=== PATIENT | female | born 1965 | race Caucasian/White ===

== ENCOUNTER 2017-04-02 05:40 | Inpatient (IN) | payer SELFPAY ==
[2017-04-02] VITALS (25 sets, daily range): BP systolic 92–134; BP diastolic 46–71; PULSE 66–92; RESP 10–20; TEMP 98.3; Ht 152.4 cm; Wt 57.0 kg
[~2017-04-02] VITALS: Ht 152.4 cm; Wt 57.0 kg
[2017-04-02 06:15] LABS: ADD SCAN DIFF NO
[2017-04-02 06:17] LABS: BASOPHILS % 0.3 % (0.0-2.0); HEMATOCRIT 39.3 % (37.0-47.0); HEMOGLOBIN 13.4 g/dl (12.0-16.0); LYMPHOCYTES # 1.1 10^3/ul (0.8-2.9); LYMPHOCYTES % 9.5 % (15.0-51.0); MEAN CORPUSCULAR HEMOGLOBIN 30.5 pg (29.0-33.0); MEAN CORPUSCULAR HGB CONC 34.1 g/dl (32.0-37.0); MEAN CORPUSCULAR VOLUME 89.3 fl (82.0-101.0); MEAN PLATELET VOLUME 10.9 fl (7.4-10.4); MONOCYTE # 0.5 10^3/ul (0.3-0.9); MONOCYTES % 4.1 % (0.0-11.0); NEUTROPHIL # 9.9 10^3/ul (1.6-7.5); NEUTROPHILS % 85.8 % (39.0-77.0); PLATELET COUNT 278 10^3/UL (140-415); RED CELL DISTRIBUTION WIDTH 13.9 % (11.5-14.5); WHITE BLOOD COUNT 11.5 10^3/ul (4.8-10.8)
[2017-04-02] MEDS ORDERED: ONDANSETRON 4 MG INJ IV STA (06:19)
[2017-04-02] MEDS ORDERED: FAMOTIDINE 20 MG INJ IV STA (06:19)
[2017-04-02] MEDS ORDERED: SOD CHLORIDE 0.9% 1,000 ML IV STA ×2 (06:19→09:07)
[2017-04-02] MEDS ORDERED: morphine 4 MG/ML VIAL IV STA ×2 (06:19→08:02)
[2017-04-02 06:38] LABS: ADD UMIC YES; UR ASCORBIC ACID NEGATIVE (NEGATIVE); UR BILIRUBIN (Dip) NEGATIVE (NEGATIVE); UR BLOOD (Dip) NEGATIVE (NEGATIVE); UR CLARITY SLIGHTLY CLOUDY (CLEAR); UR COLOR YELLOW (YELLOW); UR GLUCOSE (Dip) 1+ mg/dL (NEGATIVE); UR KETONES (Dip) TRACE mg/dL (NEGATIVE); UR LEUKOCYTE ESTERASE (Dip) NEGATIVE Leu/ul (NEGATIVE); UR NITRITE (Dip) NEGATIVE (NEGATIVE); UR RBC 1 /HPF (0-5); UR SPECIFIC GRAVITY (Dip) 1.015 (1.003-1.030); UR SQUAMOUS EPITHELIAL CELL FEW /HPF (FEW); UR TOTAL PROTEIN (Dip) 1+ mg/dl (NEGATIVE); UR UROBILINOGEN (Dip) NEGATIVE (NEGATIVE)
[2017-04-02 06:47] LABS: ALANINE AMINOTRANSFERASE 29 IU/L (13-69); ALBUMIN/GLOBULIN RATIO 1.66; ALKALINE PHOSPHATASE 62 IU/L (42-121); ANION GAP 22 (8-16); ASPARTATE AMINO TRANSFERASE 26 IU/L (15-46); BILIRUBIN,INDIRECT 0.2 mg/dl (0-1.1); BILIRUBIN,TOTAL 0.2 mg/dl (0.2-1.3); BLOOD UREA NITROGEN 15 mg/dl (7-20); CALCIUM 9.7 mg/dl (8.4-10.2); CARBON DIOXIDE 26 mmol/L (21-31); CHLORIDE 104 mmol/L (97-110); GLUCOSE 167 mg/dl (70-220); POTASSIUM 3.5 mmol/L (3.5-5.1); SODIUM 148 mmol/L (135-144)
[2017-04-02 07:05] LABS: TROPONIN-I < 0.012 ng/ml (0.00-0.12)
--- NOTE | 2017-04-02 08:04 | RADRPT ---
PROCEDURE: CT Abdomen and Pelvis without contrast. CLINICAL INDICATION: Right lower quadrant pain TECHNIQUE: CT scan of the abdomen and pelvis without contrast was performed without intravenous co ntrast. Coronal and sagittal reformatted images were obtained from the axial source images. Images were reviewed on a high-resolution PACS workstation. The total exam DLP equals 260 mGy-cm. One or more of the following dose reduction techniques were used: Automated exposure control Adjustment of the mA and/or kV according to patient size. Use of iterative reconstruction technique. COMPARISON: None. FINDINGS: The lung bases are clear. The visualized heart size is normal. The aorta and its branches are norm al in size and caliber. The kidneys are symmetric in size and density. There is no perinephric fat stranding. A few small ca lculi are visualized within the superior and inferior poles of both kidneys measuring up to 2-4 mm w ithout hydronephrosis. The ureters are difficult to visualize due to paucity of intra-abdominal fat although no large calculi are visualized within the expected course of the ureters. Evaluation of solid organs is limited due to the lack of intravenous contrast. However, the liver, g allbladder, spleen, pancreas, and adrenal glands are unremarkable. A small hiatal hernia is present. The stomach is decompressed. There is a right inguinal hernia in which there are loops of small bowel within the hernia. There is also fecalization of the small sean wel loops within the hernia without significant dilatation of the small bowel. There is a small geri unt of fat stranding and fluid adjacent to the bowel loops within the hernia sac in which some infla mmation may be present. There is some degree of swirling of the small bowel loops coronal images 21 - 23. The neck of the hernia measures about 4.0 cm wide although the hernia sac is larger than the neck of the hernia. Multiple diverticula are visualized more prominent within the lower descending and sigmoid colon without evidence for diverticulitis. The appendix is visualized, and is unremark able in appearance. There is no free intraperitoneal fluid or pneumoperitoneum. There is no mesenteric, retroperitoneal, or pelvic lymphadenopathy. The bladder is mildly distended, but grossly unremarkable. The uterus is enlarged and lobulated in a ppearance with fibroids, some of which contain calcifications. The adnexa are unremarkable. There is no pelvic free fluid. There is mild left convex curvature of the lumbar spine with mild degenerative disk disease. No acu te fractures are visualized. RPTAT: EE IMPRESSION: 1. Right inguinal hernia with small bowel loops within the hernia sac with a small amount of surrou nding inflammation - fat stranding and fluid which can be seen with an incarcerated and strangulated inguinal hernia. Fecalization of the small bowel loops within the hernia sac which can be seen wit h partial obstruction although the small bowel loops are normal in caliber without a high-grade obst ruction. 2. Nonobstructive bilateral renal calculi. 3. Diverticulosis. 4. Fibroid uterus. Results were discussed with Dr. HERNANDEZ at 04/02/2017 7:59:44 AM. .Pat Cason MD, MD Date Time Electronically viewed and signed by .Pat Cason MD, on 04/02/2017 08:08 .T/
[2017-04-02] MEDS ORDERED: SOD CHLORIDE 0.9% 1,000 ML IV SCH (08:59)
[2017-04-02] MEDS ORDERED: ONDANSETRON 4 MG INJ IV PRN ×3 (09:00→13:30)
[2017-04-02] MEDS ORDERED: ACETAMINOPHEN 325 MG TAB PO PRN (09:00)
[2017-04-02] MEDS ORDERED: HYDROmorphONE 1 MG/ML SYG IV STA (09:07)
--- NOTE | 2017-04-02 09:07 | ERA ---
ER Documentation Chief Complaint Date/Time DATE: 04/02/17 TIME: 09:02 Chief Complaint N/V and AP since 2300 04/01/17 HPI This is a 51-year-old female who presents to the emergency room for evaluation of abdominal pain. The patient states that she has had abdominal pain since 11 PM last night and she localizes it to the right abdomen. The patient does state that her pain is sharp pain worse with movement. She came to the emergency room today for evaluation of this pain. Patient denies any relieving factors for her pain. She denies any fevers, or associated diarrhea but does state that she has had nausea and 2 or 3 episodes of nonbloody vomiting ROS All systems reviewed and are negative except as per history of present illness. Allergies Allergies: Coded Allergies: No Known Allergy (Unverified , 04/02/17) PMhx/Soc History of Surgery: Yes (c/section x2) Hx Miscellaneous Medical Probl: Yes (gastritis) Hx Alcohol Use: No Hx Substance Use: No Hx Tobacco Use: No Smoking Status: Never smoker Physical Exam Vitals Vital Signs Date Time Temp Pulse Resp B/P Pulse Ox O2 Delivery O2 Flow Rate FiO2 04/02/17 06:30 98.3 58 20 138/70 99 Room Air 04/02/17 05:42 96.0 67 18 135/73 99 Physical Exam INITIAL VITAL SIGNS: Reviewed by me GENERAL: The patient is well developed and appropriate for usual state of health in no apparent distress HEENT: Pupils equal, round, and reactive to light. EOMI. There is no scleral icterus. NECK: C-spine is soft and supple, there is no meningismus. There is no cervical lymphadenopathy. LUNGS: Clear to auscultation bilaterally. There are no rales, wheezes or rhonchi. HEART: Regular rate and rhythm, no murmurs, clicks, rubs or gallops. ABDOMEN: Right inguinal hernia, nonreducible, tender to palpation, no erythema or discoloration of skin around the hernia site, partially reducible, soft, non- tender, non-distended. There are bowel sounds in all four quadrants. No rebound or guarding. EXTREMITIES: There is no peripheral cyanosis or edema. No focal swelling or erythema. NEUROLOGICAL: The patient moves all four extremities with 5/5 strength. Cranial nerves II - XII are intact. Normal gait. Alert and oriented SKIN: There is no apparent rash or petechiae. HEME/LYMPHATIC: There is no evidence of excessive bruising or lymphedema. PSYCHIATRIC: The patient does not appear anxious or depressed. Result Diagram: 04/02/17 0552 04/02/17 0552 Results 24 hrs Laboratory Tests Test 04/02/17 05:52 04/02/17 06:15 White Blood Count 11.510^3/ul Red Blood Count 4.4010^6/ul Hemoglobin 13.4g/dl Hematocrit 39.3% Mean Corpuscular Volume 89.3fl Mean Corpuscular Hemoglobin 30.5pg Mean Corpuscular Hemoglobin Concent 34.1g/dl Red Cell Distribution Width 13.9% Platelet Count 04043^3/UL Mean Platelet Volume 10.9fl Neutrophils % 85.8% Lymphocytes % 9.5% Monocytes % 4.1% Eosinophils % 0.0% Basophils % 0.3% Nucleated Red Blood Cells % 0.0/100WBC Neutrophils # 9.910^3/ul Lymphocytes # 1.110^3/ul Monocytes # 0.510^3/ul Eosinophils # 0.010^3/ul Basophils # 0.010^3/ul Nucleated Red Blood Cells # 0.010^3/ul Sodium Level 148mmol/L Potassium Level 3.5mmol/L Chloride Level 104mmol/L Carbon Dioxide Level 26mmol/L Anion Gap 22 Blood Urea Nitrogen 15mg/dl Creatinine 0.60mg/dl Glucose Level 167mg/dl Calcium Level 9.7mg/dl Total Bilirubin 0.2mg/dl Direct Bilirubin 0.00mg/dl Indirect Bilirubin 0.2mg/dl Aspartate Amino Transf (AST/SGOT) 26IU/L Alanine Aminotransferase (ALT/SGPT) 29IU/L Alkaline Phosphatase 62IU/L Troponin I < 0.012ng/ml Total Protein 8.0g/dl Albumin 5.0g/dl Globulin 3.00g/dl Albumin/Globulin Ratio 1.66 Lipase 32U/L Urine Color YELLOW Urine Clarity SLIGHTLY CLOUDY Urine pH 9.0 Urine Specific [place] 1.015 Urine Ketones TRACEmg/dL Urine Nitrite NEGATIVEmg/dL Urine Bilirubin NEGATIVEmg/dL Urine Urobilinogen NEGATIVEmg/dL Urine Leukocyte Esterase NEGATIVELeu/ul Urine Microscopic RBC 1/HPF Urine Microscopic WBC 3/HPF Urine Squamous Epithelial Cells FEW/HPF Urine Hemoglobin NEGATIVEmg/dL Urine Glucose 1+mg/dL Urine Total Protein 1+mg/dl Urine Test NEGATIVE Current Medications Medications (Trade) Dose Ordered Sig/Janette Route PRN Reason Start Time Stop Time Status Last Admin Dose Admin Morphine Sulfate (morphine) 4 mg ONCE STAT IV 04/02/17 06:19 04/02/17 06:21 DC 04/02/17 06:35 Ondansetron HCl (Zofran Inj) 4 mg ONCE STAT IV 04/02/17 06:19 04/02/17 06:21 DC 04/02/17 06:35 Famotidine 20 mg 20 mg ONCE STAT IV 04/02/17 06:19 04/02/17 06:21 DC 04/02/17 06:36 Sodium Chloride (NS) 1,000 ml @ 1,000 mls/hr Q1H STAT IV 04/02/17 06:19 04/02/17 07:18 DC 04/02/17 06:35 Morphine Sulfate 4 mg 4 mg ONCE STAT IV 04/02/17 08:02 04/02/17 08:04 DC 04/02/17 08:06 Sodium Chloride (NS) 1,000 ml @ 80 mls/hr [id number] IV 04/02/17 08:59 04/02/17 21:28 Ondansetron HCl (Zofran Inj) 4 mg BRIDGE ORDER PRN IV NAUSEA AND/OR VOMITING 04/02/17 09:00 04/03/17 08:59 Acetaminophen (Tylenol Tab) 650 mg ER BRIDGE PRN PO MILD PAIN/FEVER 04/02/17 09:00 04/03/17 08:59 Procedures/MDM CT abdomen pelvis without: 1. Right inguinal hernia with small bowel loops within the hernia sac with a small amount of surrounding inflammation - fat stranding and fluid which can be seen with an incarcerated and strangulated inguinal hernia. Fecalization of the small bowel loops within the hernia sac which can be seen with partial obstruction although the small bowel loops are normal in caliber without a high-grade obstruction. 2. Nonobstructive bilateral renal calculi. 3. Diverticulosis. 4. Fibroid uterus. EKG: Rate/Rhythm: [Normal Sinus Rhythm] QRS, ST, T-waves: [No changes consistent w/ acute ischemia] Impression: [No evidence of ischemia or arrhythmia] Chest X-ray 1V Interpreted by me: Soft Tissue: No acute abnormalities Bones: No acute abnormalities Mediastinum/Cardiac Silhouette/Lungs: [No acute abnormalities] This 51-year-old female presents to the emergency room for evaluation of abdominal pain. When I evaluated this patient I did not a tender and hard inguinal hernia. I did give the patient morphine to try to reduce her hernia however I was unsuccessful. CT of the abdomen pelvis does reveal an incarcerated right inguinal hernia. The patient has had her vomiting controlled with Zofran in the emergency room however given the fact that she has an incarcerated hernia she will be placed in for admission at this time. This patient does have a lactic acid of 3.1. She was given 2 L of fluids I have contacted our general surgeon on-call, Dr. Rowell who agrees to evaluate this patient take the patient to the operating room possibly today. The patient will be admitted under the care of Dr. Shaffer in the [facility] floor. Departure Diagnosis: Primary Impression: Incarcerated right inguinal hernia Additional Impressions: Abdominal pain Nausea & vomiting Condition: Stable YONG HERNANDEZ DO Apr 02, 2017 09:07
[2017-04-02 09:48] LABS: INR 0.85; PROTIME 11.6 Sec (12.2-14.2); PT RATIO 0.9
[2017-04-02 09:49] LABS: PARTIAL THROMBOPLASTIN TIME 25.1 Sec (25.0-35.0)
[2017-04-02] MEDS ORDERED: morphine 2 MG INJ IV PRN ×2 (10:00→13:30)
[2017-04-02] MEDS ORDERED: NACL 0.9% 3 ML SYG IV SCH (10:00)
--- NOTE | 2017-04-02 10:05 | RADRPT ---
AMENDMENT: 04/02/2017 10:09:18 AM Rocky Chapin MD Addendum: Nodular densities projected over both lower lobes are most consistent with nipple shadows . PROCEDURE: Chest x-ray CLINICAL INDICATION: Abdominal pain TECHNIQUE: Chest single view COMPARISON: None FINDINGS: The heart is normal in size. The pulmonary vessels are normal in caliber. The lungs are clear. Th e costophrenic angles are sharp. The visualized bony thorax is unremarkable. IMPRESSION: No acute cardiopulmonary disease. RPTAT: HH .Rocky Chapin MD, MD Date Time Electronically viewed and signed by .Rocky Chapin MD, on 04/02/2017 10:09 .W/
--- NOTE | 2017-04-02 10:29 | HP ---
Date/Time of Note Date/Time of Note DATE: 04/02/17 TIME: 10:23 Assessment/Plan VTE Prophylaxis VTE Prophylaxis Intervention: SCD's Lines/Catheters IV [facility] Saline Lock Assessment/Plan Chief Complaint/Hosp Course 1. Abdominal pain. CT evidence of right inguinal hernia with possible incarceration and strangulation. The patient will be kept n.p.o. General surgery consult has been already obtained. Patient will be provided with adequate pain control. The patient will be maintained on IV fluids. Further management will be deferred to general surgery. 2. Leukocytosis. Most probably secondary to #1. Will start the patient on empiric antibiotics. 3. Lactic acidosis. Most probably secondary to #1. Continue IV fluids. Continue empiric antibiotics. 4. Hypernatremia. Most probably secondary to dehydration. Continue IV fluids. Plan: The patient will be admitted to inpatient medical surgical floor floor. The patient will be kept n.p.o. The patient will be started on DVT prophylaxis and gastrointestinal prophylaxis. The patient will remain a full code. Activities will be as tolerated. The rest of the patient's management will be based on the clinical course and the results of diagnostic studies. Based on the patient's clinical presentation, she most probably requires at least 1 midnight's stay for further management and evaluation of her clinical presentation. The case and management of this patient was fully discussed with Dr. Mercado. Problems: HPI/ROS Admit Date/Time Admit Date/Time Apr 02, 2017 at 09:00 Hx of Present Illness Reason for admission: Abdominal pain. Consultants 1. Dilan Rowell MD, General Surgery. This is a 51-year-old female who denies any significant past medical history who came to the emergency room with chief complaint of abdominal pain that started since 2300 on 04/01/2017. The patient also had associated nausea and nonbloody, nonbilious vomiting 4 episodes. The patient rated the pain as 10/10 with radiation to the back. The patient also verbalized fevers. Patient denied any diarrhea. Patient denied any prior abdominal pain or abdominal surgeries except for C-sections 2. The patient went to a urgent care clinic for the pain and she was referred to the ER for further management. In the emergency room, the patient underwent a CT scan of the abdomen and pelvis that showed "right inguinal hernia with small bowel loops within the hernia sac with a small amount of surrounding inflammation - fat stranding and fluid which can be seen with an incarcerated and strangulated inguinal hernia. Fecalization of the small bowel loops within the hernia sac which can be seen with partial obstruction although the small bowel loops are normal in caliber without a high-grade obstruction." Patient also had underlying lactic acidosis. The patient had minimal leukocytosis. The patient remained afebrile. The patient was given analgesics and IV fluids in the emergency room. General surgery consult was called by the ER physician. ROS Constitutional: nausea, poor po Eyes: no complaints ENT: no complaints Respiratory: no complaints Cardiovascular: no complaints Gastrointestinal: decreased appetite, pain, vomiting Genitourinary: no complaints Musculoskeletal: no complaints Skin: no complaints Neurologic: no complaints Endocrine: no complaints Lymphatic: no complaints Psychological: no complaints Immunologic: no complaints PMH/Family/Social Past Medical History Medical History: no pertinent history Past Surgical History Past Surgical Hx: other ( 2) Social History Lives with her family. 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 Alcohol Use: none Smoking Status: Never smoker Drug Use: none Exam/Review of Systems Vital Signs Vitals Vital Signs Date Time Temp Pulse Resp B/P Pulse Ox O2 Delivery O2 Flow Rate FiO2 04/02/17 06:30 98.3 58 20 138/70 99 Room Air Exam Exam General: Adequately build 51 year-old female lying in bed in no apparent distress. HEENT: Normocephalic, atraumatic. Eyes: Anicteric sclerae, conjunctivae clear. ENT: Nasal septum midline, oral mucosa moist. Neck supple, no JVD noticed. Respiratory: Bilaterally clear breath sounds. No use of accessory muscles of respiration. No adventitious breath sounds. Cardiovascular: S1, S2 heard. No murmurs or gallops. Abdomen: Soft and nondistended. Right lower quadrant tenderness. Right inguinal hernia palpable. Genitourinary: Deferred. Extremities: No cyanosis, no clubbing, no edema. Peripheral pulses palpable. Neurologic: Cranial nerves II through XII grossly intact. The patient is awake, alert, and oriented. Skin: Normal skin turgor. No skin rashes. Labs Result Diagram: 04/02/17 0552 04/02/17 0552 Medications Medications Current Medications Sodium Chloride 1,000 ml @ 80 mls/hr [id number] IV Last administered on t 09:31; Admin Dose 80 MLS/HR; Start 04/02/17 at 08:59; Stop 04/02/17 at 21: 28 Potassium Chloride/Sodium Chloride (1/2 NS + KCl 20 Meq) 1,000 ml @ 125 mls/hr Q8H IV ; Start 04/02/17 at 11:00 Ondansetron HCl (Zofran Inj) 4 mg Q6H PRN IV NAUSEA AND/OR VOMITING; Start at 10:00 Morphine Sulfate (morphine) 2 mg Q4H PRN IV SEVERE PAIN LEVEL 7-10; Start 04/02 at 10:00 Famotidine 20 mg 20 mg Q12 IV ; Start 04/02/17 at 21:00 Piperacillin Sod/ Tazobactam Sod (Zosyn 3.375gm/ 100 ml (Pmx)) 100 ml @ 200 mls /hr Q8 IVPB ; Start 04/02/17 at 14:[address] Scan of the Abdomen and Pelvis IMPRESSION: 1. Right inguinal hernia with small bowel loops within the hernia sac with a small amount of surrounding inflammation - fat stranding and fluid which can be seen with an incarcerated and strangulated inguinal hernia. Fecalization of the small bowel loops within the hernia sac which can be seen with partial obstruction although the small bowel loops are normal in caliber without a high- grade obstruction. 2. Nonobstructive bilateral renal calculi. 3. Diverticulosis. 4. Fibroid uterus. CXR IMPRESSION: No acute cardiopulmonary disease. IZABELLA CRUZ NP Apr 02, 2017 10:28
[2017-04-02 11:01] LABS: CHOL/HDL RATIO 3.1 RATIO
[2017-04-02] MEDS: 1/2 NS + KCL 20 MEQ 1,000 ML IV SCH ×2 (11:31→19:00)
[2017-04-02] MEDS ORDERED: METOCLOPRAMIDE 10 MG INJ ONE (12:15)
[2017-04-02] MEDS ORDERED: GLYCOPYRROLATE 0.4 MG INJ ONE (12:15)
[2017-04-02] MEDS ORDERED: MIDAZOLAM 1 MG/ML 2 ML INJ ONE (12:15)
[2017-04-02] MEDS ORDERED: PROPOFOL 20 ML ONE (12:15)
[2017-04-02] MEDS ORDERED: ROCURONIUM 50 MG INJ ONE (12:15)
[2017-04-02] MEDS ORDERED: NEOSTIGMINE 3 MG/3 ML SYRINGE ONE (12:15)
--- NOTE | 2017-04-02 12:28 | CONS ---
Date/Time of Note Date/Time of Note DATE: 04/02/17 TIME: 12:24 Assessment/Plan Assessment/Plan Problems: (1) Incarcerated right inguinal hernia Status: Acute (2) Nausea & vomiting Status: Acute (3) Abdominal pain Status: Acute Additional Assessment/Plan Incarcerated right inguinal hernia with visceral involvement Plan: Patient will require urgent operative reduction and repair. I have discussed the procedure, indications, alternatives and risks in detail with the patient who has an excellent understanding of the nature of her situation and agrees to the proposed plan of therapy as outlined. Consultation Date/Type/Reason Admit Date/Time Apr 02, 2017 at 09:00 Date of Consultation: Apr 02, 2017 Reason for Consultation Incarcerated right inguinal hernia The patient is a 51-year-old female who presents to the emergency room with a severe pain in the right groin with nausea. She was found to have an incarcerated right inguinal hernia. A CT scan showed viscera within the hernia. Despite several attempts, the hernia could not be reduced. Eyes: no complaints ENT: no complaints Respiratory: no complaints Cardiovascular: no complaints Gastrointestinal: decreased appetite, pain, vomiting Genitourinary: no complaints Musculoskeletal: no complaints Skin: no complaints Neurologic: no complaints Lymphatic: no complaints Psychological: no complaints Immunologic: no complaints Past Medical History Medical History: no pertinent history Past Surgical History Past Surgical Hx: other ( 2) Social History Alcohol Use: none Smoking Status: Never smoker Drug Use: none Exam/Review of Systems Vital Signs Vitals Vital Signs Date Time Temp Pulse Resp B/P Pulse Ox O2 Delivery O2 Flow Rate FiO2 04/02/17 11:00 Nasal Cannula 2.0 04/02/17 10:51 98.5 67 18 134/66 97 Results Result Diagram: 04/02/17 0552 04/02/17 0552 Results 24 hrs Laboratory Tests Test 04/02/17 05:02 04/02/17 05:22 04/02/17 05:52 04/02/17 06:15 Hemoglobin A1c 5.8 Triglycerides Level 81 Cholesterol Level 212 H LDL Cholesterol, Calculated 129 HDL Cholesterol 67 Cholesterol/HDL Ratio 3.1 White Blood Count 11.5 H Red Blood Count 4.40 Hemoglobin 13.4 Hematocrit 39.3 Mean Corpuscular Volume 89.3 Mean Corpuscular Hemoglobin 30.5 Mean Corpuscular Hemoglobin Concent 34.1 Red Cell Distribution Width 13.9 Platelet Count 278 Mean Platelet Volume 10.9 H Neutrophils % 85.8 H Lymphocytes % 9.5 L Monocytes % 4.1 Eosinophils % 0.0 Basophils % 0.3 Nucleated Red Blood Cells % 0.0 Neutrophils # 9.9 H Lymphocytes # 1.1 Monocytes # 0.5 Eosinophils # 0.0 Basophils # 0.0 Nucleated Red Blood Cells # 0.0 Prothrombin Time 11.6 L Prothrombin Time Ratio 0.9 INR International Normalized Ratio 0.85 Activated Partial Thromboplast Time 25.1 Sodium Level 148 H Potassium Level 3.5 Chloride Level 104 Carbon Dioxide Level 26 Anion Gap 22 H Blood Urea Nitrogen 15 Creatinine 0.60 Glucose Level 167 Calcium Level 9.7 Total Bilirubin 0.2 Direct Bilirubin 0.00 Indirect Bilirubin 0.2 Aspartate Amino Transf (AST/SGOT) 26 Alanine Aminotransferase (ALT/SGPT) 29 Alkaline Phosphatase 62 Troponin I < 0.012 Total Protein 8.0 Albumin 5.0 H Globulin 3.00 Albumin/Globulin Ratio 1.66 Lipase 32 Urine Color YELLOW Urine Clarity SLIGHTLY CLOUDY A Urine pH 9.0 Urine Specific [place] 1.015 Urine Ketones TRACE A Urine Nitrite NEGATIVE Urine Bilirubin NEGATIVE Urine Urobilinogen NEGATIVE Urine Leukocyte Esterase NEGATIVE Urine Microscopic RBC 1 Urine Microscopic WBC 3 Urine Squamous Epithelial Cells FEW Urine Hemoglobin NEGATIVE Urine Glucose 1+ H Urine Total Protein 1+ H Urine Test NEGATIVE Test 04/02/17 08:10 Lactic Acid Level 3.1 *H Medications Medications Current Medications Sodium Chloride 1,000 ml @ 80 mls/hr [id number] IV Last administered on 09:31; Admin Dose 80 MLS/HR; Start 04/02/17 at 08:59; Stop 04/02/17 at 21: 28 Potassium Chloride/Sodium Chloride (1/2 NS + KCl 20 Meq) 1,000 ml @ 125 mls/hr Q8H IV Last administered on 04/02/17 11:31; Admin Dose 125 MLS/HR; Start 04/02 at 11:00 Ondansetron HCl (Zofran Inj) 4 mg Q6H PRN IV NAUSEA AND/OR VOMITING Last administered on 04/02/17 10:26; Admin Dose 4 MG; Start 04/02/17 at 10:00 Morphine Sulfate (morphine) 2 mg Q4H PRN IV SEVERE PAIN LEVEL 7-10 Last administered on 7/16/17at 10:27; Admin Dose 2 MG; Start 04/02/17 at 10:00 Famotidine 20 mg 20 mg Q12 IV ; Start 04/02/17 at 21:00 Piperacillin Sod/ Tazobactam Sod (Zosyn 3.375gm/ 100 ml (Pmx)) 100 ml @ 200 mls /hr Q8 IVPB ; Start 04/02/17 at 14:00 PEPE BECK MD Apr 02, 2017 12:28
[2017-04-02] MEDS ORDERED: DEXAMETHASONE 4 MG/ML 1 ML INJ ONE (12:39)
[2017-04-02] MEDS ORDERED: PIPER-TAZO 3.375 GM IV (PMX) 100 ML ONE (12:50)
[2017-04-02] MEDS ORDERED: BUPIVACAINE 0.25%/EPI (SDV) 30 ML INJ ONE (12:59)
[2017-04-02] MEDS ORDERED: LIDOCAINE 2% (SDV) 5 ML INJ ONE (13:13)
[2017-04-02] MEDS ORDERED: ROPIVACAINE 0.2% 20 ML VIAL ONE (13:13)
[2017-04-02] MEDS ORDERED: KETOROLAC 30 MG INJ ONE (13:14)
[2017-04-02] MEDS ORDERED: EPHEDrine SULFATE 50 MG/5 ML SYG ONE (13:22)
[2017-04-02] MEDS ORDERED: OXYCODONE/ACETAMINOPHEN (5/325) TAB PO PRN ×2 (13:30)
--- NOTE | 2017-04-02 13:30 | OPR ---
Date/Time of Note Date/Time of Note DATE: 04/02/17 TIME: 13:25 Operative Report Procedure Date: Apr 02, 2017 Preoperative Diagnosis Incarcerated right inguinal hernia Postoperative Diagnosis Incarcerated right inguinal hernia Operation Performed 1. Repair right inguinal hernia with extra large plug 2. Right inguinal nerve block Surgeon: PEPE BECK MD Anesthesia: general Anesthesiologist: LUIS ALBERTO SUMMERS MD Estimated Blood Loss: 0 - 10 ml's Specimens Sac Grafts/Implants Extra-large Bard PerFix plug Tubes/Drains None Complications: None Pt Condition Post Procedure: stable Disposition: PACU Indications Incarcerated right inguinal hernia with visceral involvement Operative\Procedure Findings After satisfactory general anesthesia was achieved the lower abdomen was prepped and draped in the usual fashion. With the patient anesthetized the hernia was able to be easily reduced. Next a transverse right groin incision was made in the groin crease and carried down to the level of the external oblique, which was opened in the direction of its fibers. There was a large indirect sac emanating from the internal ring down into the pubis. This was dissected circumferentially and ligated at the base with a 0 Vicryl. The sac was submitted. The internal ring was occluded by placement of an extra-large plug secured circumferentially to healthy fascia with interrupted 3-0 Vicryl suture. Next the flat portion of the mesh was cut and fashioned to fit in the floor of the canal as an overlay. It was anchored at the pubic tubercle with 3- 0 Vicryl, laterally to inguinal ligament with interrupted 3-0 Vicryl, and medially to conjoined tendon with interrupted 3-0 Vicryl. The external oblique was closed with a running 3-0 Vicryl. Fabrice's was closed with interrupted 3-0 Vicryl. Next a right inguinal nerve block was performed. 10 cc of 0.25% Marcaine with epinephrine were injected into the fascia 1 cm medial and inferior to the right anterior iliac spine. 10 more cc of local anesthetic were injected directly into the wound. Skin was closed with running 4-0 subcuticular Vicryl. Sponge and needle counts were reported as correct 2. PEPE BECK MD Apr 02, 2017 13:30
[2017-04-02] MEDS ORDERED: PIPER-TAZO 3.375 GM IV (PMX) 100 ML IVPB SCH (14:00)
[2017-04-02] MEDS ORDERED: FAMOTIDINE 20 MG INJ IV SCH (21:00)
--- NOTE | 2017-04-02 23:45 | DS ---
Date/Time of Note Date/Time of Note DATE: 04/02/17 TIME: 23:43 Discharge Summary Admission/Discharge Info Admit Date/Time Apr 02, 2017 at 09:00 Discharge Date/Time Apr 02, 2017 at 22:05 Discharge Diagnosis 1. Incarcerated right inguinal hernia. S/P repair. 2. Dyslipidemia. Patient Condition: Stable Consults Dilan Rowell MD, General Surgery. Procedures Operation Performed 1. Repair right inguinal hernia with extra large plug 2. Right inguinal nerve block CT Scan of the Abdomen & Pelvis IMPRESSION: 1. Right inguinal hernia with small bowel loops within the hernia sac with a small amount of surrounding inflammation - fat stranding and fluid which can be seen with an incarcerated and strangulated inguinal hernia. Fecalization of the small bowel loops within the hernia sac which can be seen with partial obstruction although the small bowel loops are normal in caliber without a high- grade obstruction. 2. Nonobstructive bilateral renal calculi. 3. Diverticulosis. 4. Fibroid uterus. Hx of Present Illness Reason for admission: Abdominal pain. Consultants 1. Dilan Rowell MD, General Surgery. This is a 51-year-old female who denies any significant past medical history who came to the emergency room with chief complaint of abdominal pain that started since 2300 on 04/01/2017. The patient also had associated nausea and nonbloody, nonbilious vomiting 4 episodes. The patient rated the pain as 10/10 with radiation to the back. The patient also verbalized fevers. Patient denied any diarrhea. Patient denied any prior abdominal pain or abdominal surgeries except for C-sections 2. The patient went to a urgent care clinic for the pain and she was referred to the ER for further management. In the emergency room, the patient underwent a CT scan of the abdomen and pelvis that showed "right inguinal hernia with small bowel loops within the hernia sac with a small amount of surrounding inflammation - fat stranding and fluid which can be seen with an incarcerated and strangulated inguinal hernia. Fecalization of the small bowel loops within the hernia sac which can be seen with partial obstruction although the small bowel loops are normal in caliber without a high-grade obstruction." Patient also had underlying lactic acidosis. The patient had minimal leukocytosis. The patient remained afebrile. The patient was given analgesics and IV fluids in the emergency room. General surgery consult was called by the ER physician. Hospital Course The patient was admitted to inpatient medical/surgical floor. She was kept NPO. She was maintained on IV fluids. She was started on empiric antibiotics because of underlying leukocytosis and lactic acidosis.The patient was taken to the OR on 04/02/2017 and the patient underwent a right inguinal hernia repair. Post- operatively the patient was transferred to the floor. She was started on a diet. The patient was able to tolerate a diet without any significant gastrointestinal problems. The patient was cleared by general surgery to be discharged home. The discharge instructions and discharge prescriptions were provided by the surgeon. I would like to thank Dr. Rowell for seeing the patient , doing the necessary procedures, and providing clinical recommendations. The case and management of this patient was fully discussed with Dr. Mercado. Home Meds No Active Prescriptions or Reported Meds Follow-up Plan Follow-up with Dr. Rowell in 1 week. Primary Care Provider Care Physician No Primary Time spent on discharge: < 30 minutes Pending Labs Laboratory Tests Test 04/02/17 05:02 04/02/17 05:22 04/02/17 05:52 04/02/17 05:56 Hemoglobin A1c 5.8% (0-5.9) Triglycerides Level 81mg/dl (0-149) Cholesterol Level 212mg/dl (100-200) LDL Cholesterol, Calculated 129mg/dl HDL Cholesterol 67mg/dl (37-92) Cholesterol/HDL Ratio 3.1RATIO Thyroid Stimulating Hormone (TSH) 1.130MIU/L (0.465-4.680) White Blood Count 11.510^3/ul (4.8-10.8) Red Blood Count 4.4010^6/ul (4.20-5.40) Hemoglobin 13.4g/dl (12.0-16.0) Hematocrit 39.3% (37.0-47.0) Mean Corpuscular Volume 89.3fl (82.0-101.0) Mean Corpuscular Hemoglobin 30.5pg (29.0-33.0) Mean Corpuscular Hemoglobin Concent 34.1g/dl (32.0-37.0) Red Cell Distribution Width 13.9% (11.5-14.5) Platelet Count 40001^3/UL (140-415) Mean Platelet Volume 10.9fl (7.4-10.4) Neutrophils % 85.8% (39.0-77.0) Lymphocytes % 9.5% (15.0-51.0) Monocytes % 4.1% (0.0-11.0) Eosinophils % 0.0% (0.0-7.0) Basophils % 0.3% (0.0-2.0) Nucleated Red Blood Cells % 0.0/100WBC (0.0-0.0) Neutrophils # 9.910^3/ul (1.6-7.5) Lymphocytes # 1.110^3/ul (0.8-2.9) Monocytes # 0.510^3/ul (0.3-0.9) Eosinophils # 0.010^3/ul (0.0-0.5) Basophils # 0.010^3/ul (0.0-0.1) Nucleated Red Blood Cells # 0.010^3/ul (0.0-0.0) Prothrombin Time 11.6Sec (12.2-14.2) Prothrombin Time Ratio 0.9 INR International Normalized Ratio 0.85 Activated Partial Thromboplast Time 25.1Sec (25.0-35.0) Sodium Level 148mmol/L (135-144) Potassium Level 3.5mmol/L (3.5-5.1) Chloride Level 104mmol/L (97-110) Carbon Dioxide Level 26mmol/L (21-31) Anion Gap 22 (8-16) Blood Urea Nitrogen 15mg/dl (7-20) Creatinine 0.60mg/dl (0.44-1.00) Glucose Level 167mg/dl (70-220) Calcium Level 9.7mg/dl (8.4-10.2) Total Bilirubin 0.2mg/dl (0.2-1.3) Direct Bilirubin 0.00mg/dl (0.00-0.20) Indirect Bilirubin 0.2mg/dl (0-1.1) Aspartate Amino Transf (AST/SGOT) 26IU/L (15-46) Alanine Aminotransferase (ALT/SGPT) 29IU/L (13-69) Alkaline Phosphatase 62IU/L (42-121) Troponin I < 0.012ng/ml (0.00-0.12) Total Protein 8.0g/dl (6.1-8.1) Albumin 5.0g/dl (3.3-4.9) Globulin 3.00g/dl (1.3-3.2) Albumin/Globulin Ratio 1.66 Lipase 32U/L (23-300) Free Thyroxine 1.53ng/dl (0.64-1.79) Test 04/02/17 06:15 04/02/17 08:10 Urine Color YELLOW (YELLOW) Urine Clarity SLIGHTLY CLOUDY (CLEAR) Urine pH 9.0 (5.0-9.0) Urine Specific [place] 1.015 (1.003-1.030) Urine Ketones TRACEmg/dL (NEGATIVE) Urine Nitrite NEGATIVEmg/dL (NEGATIVE) Urine Bilirubin NEGATIVEmg/dL (NEGATIVE) Urine Urobilinogen NEGATIVEmg/dL (NEGATIVE) Urine Leukocyte Esterase NEGATIVELeu/ul (NEGATIVE) Urine Microscopic RBC 1/HPF (0-5) Urine Microscopic WBC 3/HPF (0-5) Urine Squamous Epithelial Cells FEW/HPF (FEW) Urine Hemoglobin NEGATIVEmg/dL (NEGATIVE) Urine Glucose 1+mg/dL (NEGATIVE) Urine Total Protein 1+mg/dl (NEGATIVE) Urine Test NEGATIVE (NEGATIVE) Lactic Acid Level 3.1mmol/L (0.5-2.0) IZABELLA CRUZ NP Apr 02, 2017 23:45
== END 2017-04-02 22:05 | disposition home or self-care (01) | DRG 351 ==
LOC: E/R 05:40 → MS1 09:00
PROVIDERS: ADMIT Internal Medicine; ATTEND Internal Medicine
PROC: 0YQ60ZZ Repair Left Inguinal Region, Open Approach (ICD-10-PCS; principal; 2017-04-02 12:00)
DX: K40.30 Unilateral inguinal hernia, with obstruction, without gangrene, not specified as recurrent (principal); E87.2 Acidosis; E87.0 Hyperosmolality and hypernatremia; N20.0 Calculus of kidney; E78.5 Hyperlipidemia, unspecified; K57.90 Diverticulosis of intestine, part unspecified, without perforation or abscess without bleeding; D25.9 Leiomyoma of uterus, unspecified
CPT/HCPCS: 36415; 71010; 74176; 80053; 80061; 81001; 83036; 83605; 83690; 84439; 84443; 84484; 84703; 85025; 85610; 85730; 88304; 93005; 96374; 96375; 96376; C1781; J1100; J1170; J1885; J2250; J2270; J2405; J2543; J2710; J2765; J2795; J3480; J7030

== ENCOUNTER 2017-04-05 14:50 | Inpatient (IN) | payer MEDICAID, OTHER ==
[~2017-04-05] VITALS: Ht 154.9 cm; Wt 57.1 kg
[2017-04-05] MEDS ORDERED: SOD CHLORIDE 0.9% 1,000 ML IV STA (16:19)
[2017-04-05] MEDS ORDERED: ONDANSETRON 4 MG INJ IV STA (16:19)
[2017-04-05 16:41] LABS: ADD SCAN DIFF NO
[2017-04-05 16:48] LABS: BASOPHILS % 0.2 % (0.0-2.0); EOSINOPHILS % 0.4 % (0.0-7.0); HEMATOCRIT 40.3 % (37.0-47.0); HEMOGLOBIN 13.7 g/dl (12.0-16.0); LYMPHOCYTES # 1.9 10^3/ul (0.8-2.9); LYMPHOCYTES % 19.5 % (15.0-51.0); MEAN CORPUSCULAR VOLUME 88.4 fl (82.0-101.0); MEAN PLATELET VOLUME 10.7 fl (7.4-10.4); MONOCYTE # 0.9 10^3/ul (0.3-0.9); MONOCYTES % 9.9 % (0.0-11.0); NEUTROPHIL # 6.6 10^3/ul (1.6-7.5); NEUTROPHILS % 69.5 % (39.0-77.0); PLATELET COUNT 296 10^3/UL (140-415); RED BLOOD COUNT 4.56 10^6/ul (4.20-5.40); RED CELL DISTRIBUTION WIDTH 14.3 % (11.5-14.5); WHITE BLOOD COUNT 9.5 10^3/ul (4.8-10.8)
[2017-04-05] MEDS: morphine 4 MG/ML VIAL IV STA ×2 (16:48→16:53)
[2017-04-05 17:09] LABS: ALBUMIN/GLOBULIN RATIO 1.08; BILIRUBIN,INDIRECT 0.3 mg/dl (0-1.1); BILIRUBIN,TOTAL 0.3 mg/dl (0.2-1.3); CALCIUM 9.9 mg/dl (8.4-10.2); CREATININE 0.54 mg/dl (0.44-1.00); POTASSIUM 3.7 mmol/L (3.5-5.1); TOTAL PROTEIN 7.7 g/dl (6.1-8.1)
[2017-04-05 17:13] LABS: ADD UMIC YES; UR ASCORBIC ACID 40 mg/dL (NEGATIVE); UR BILIRUBIN (Dip) NEGATIVE (NEGATIVE); UR BLOOD (Dip) NEGATIVE (NEGATIVE); UR CLARITY SLIGHTLY CLOUDY (CLEAR); UR COLOR YELLOW (YELLOW); UR GLUCOSE (Dip) NEGATIVE (NEGATIVE); UR KETONES (Dip) 2+ mg/dL (NEGATIVE); UR LEUKOCYTE ESTERASE (Dip) TRACE Leu/ul (NEGATIVE); UR MUCUS MANY /HPF (NONE SEEN); UR NITRITE (Dip) NEGATIVE (NEGATIVE); UR RBC 6 /HPF (0-5); UR SPECIFIC GRAVITY (Dip) 1.025 (1.003-1.030); UR SQUAMOUS EPITHELIAL CELL FEW /HPF (FEW); UR TOTAL PROTEIN (Dip) 1+ mg/dl (NEGATIVE); UR UROBILINOGEN (Dip) NEGATIVE (NEGATIVE)
--- NOTE | 2017-04-05 19:25 | RADRPT ---
PROCEDURE: CT abdomen and pelvis without contrast. CLINICAL INDICATION: Upper and lower abdominal pain. History of right inguinal hernia TECHNIQUE: CT scan of the abdomen and pelvis without contrast was performed. Sagittal and coronal reformatted images were obtained from the axial source images. CTDI = 7.26 mGy; DLP = 356.28 mGy-cm COMPARISON: CT abdomen and pelvis 04/02/2017 FINDINGS: Visualized lower thorax: Development of mild compressive left lower lobe subsegmental atelectasis. The right lung base is clear. All left pleural effusion, no right pleural effusion is demonstrated . Liver, gallbladder, pancreas and spleen: The liver is normal and size, contour and attenuation. Th ere is no evidence for a liver mass or ductal dilatation. The gallbladder is unremarkable. No comm on bile duct abnormality is demonstrated. The pancreas is unremarkable. The spleen is normal in si ze. Adrenal glands and genitourinary system: The adrenal glands are normal bilaterally. Tiny bilateral nonobstructing 1 mm intrarenal calculi are again noted, a para stones on the right and a solitary in terpolar calculus on the left. There is no evidence of hydronephrosis. The ureters are unremarkabl e. No urinary bladder abnormality is demonstrated. Enlarged lobulated uterus is consistent with le iomyomatous changes. There is no evidence of ovarian or adnexal mass. Gastrointestinal system: The stomach is decompressed and unremarkable. Dilated fluid-filled loops of jejunum and proximal ileum are present probably reflecting a postoperative adynamic ileus as ther e are findings consistent with interval right inguinal hernia repair as compared to the previous CT, postoperative subcutaneous gas along the right lower abdominal wall is present. There is no evidenc e of appendicitis. Diverticular disease is noted mostly of the distal colon with some equivocal new posterior pericolic phlegmon adjacent to the distal descending segment raising concern for divertic ulitis without abscess (series 3 image 103 - 107). The area of the rectum is unremarkable. Peritoneum, retroperitoneum, lymph nodes and vessels: The abdominal aorta is normal in caliber. The re is no evidence for atherosclerotic calcification. The inferior vena cava is unremarkable. There is no evidence for adenopathy or mass. A trace amount of perihepatic ascites and dependent free fl uid in the posterior cul-de-sac is noted. There is no evidence of pneumoperitoneum. Osseous structures and musculoskeletal findings: There is no fracture, lytic or blastic lesion. No muscular abnormality or soft tissue pathology is present. RPTAT:HJJR IMPRESSION: 1. Compared to the study of 04/02/2017 there has been interval right inguinal herniorrhaphy with ant icipated subcutaneous gas along the lower right anterior abdominal wall but development of an adynam ic small bowel ileus pattern, the fluid filled dilated loops of small bowel are increased in caliber compared to the prior CT. Distal small bowel obstruction is a differential diagnostic possibility believed to be less likely. 2. New subtle inflammatory stranding posterior to the distal descending colon diverticula concernin g for diverticulitis without abscess or pneumoperitoneum. 3. Trace amount of perihepatic and posterior cul-de-sac ascites. 4. Development of left is with compressive atelectasis of the posterior left lower lobe. 5. Tiny bilateral nonobstructing intrarenal calculi are again seen. 6. Leiomyomatous uterus again noted. Physician Kimmie Date Time Electronically viewed and signed by Physician Kimmie on 04/05/2017 19:25 /
[2017-04-05] MEDS ORDERED: CIPROFLOXACIN 400MG/D5W 200 ML IVPB STA (20:30)
[2017-04-05] MEDS ORDERED: metroNIDAZOLE 500 MG/NS (PMX) 100 ML IVPB STA (20:30)
--- NOTE | 2017-04-05 21:36 | ERA ---
ER Documentation Chief Complaint Date/Time DATE: 04/05/17 TIME: 21:28 Chief Complaint VOMITING X 4 DAYS S/P HERNIA SURGERY ON MONDAY HPI This is a 51-year-old female presenting to the emergency room complaining of lower abdominal pain rating it 7 out of 10 with many episodes of nonbloody, nonbilious vomiting for the past 4 days status post hernia surgery by Dr. Rowell for an incarcerated inguinal hernia this past Monday. Patient denies any fevers, diarrhea. She states her last bowel movement was this morning and it was normal and nonbloody. Patient states that she took her medication earlier this morning but does not know the name. ROS All systems reviewed and are negative except as per history of present illness. Medications Home Meds No Active Prescriptions or Reported Meds Allergies Allergies: Coded Allergies: No Known Allergy (Unverified , 04/02/17) PMhx/Soc History of Surgery: Yes (C-SECTIONS X 2, hernia repair 2017) Anesthesia Reaction: No Hx Neurological Disorder: No Hx Respiratory Disorders: No Hx Cardiac Disorders: No Hx Psychiatric Problems: No Hx Miscellaneous Medical Probl: No Hx Alcohol Use: No Hx Substance Use: No Hx Tobacco Use: No Physical Exam Vitals Vital Signs Date Time Temp Pulse Resp B/P Pulse Ox O2 Delivery O2 Flow Rate FiO2 04/05/17 20:43 99.4 85 16 140/65 99 Room Air 04/05/17 14:51 98.7 87 18 141/90 98 Physical Exam GENERAL: well-developed/well-nourished, in no apparent distress, non-toxic appearing HENT: NC/AT, moist mucous membranes EYES: Conjunctiva normal NECK: Supple, no lymphadenopathy PULM: CTA bilaterally, no rales, rhonchi, or wheezing heard CV: Normal S1S2, RRR, good capillary refill GI: Soft, non-distended, tender to palpation in right and lower quadrant, left lower quadrant has an incision with no evidence of purulence Normal bowel sounds, no masses or organomegaly felt on exam No gross peritonitis, no bruits Negative Rovsing, negative Nolan, negative McBurney's point, Negative CVAT BACK: No masses EXT: No clubbing, cyanosis, or edema NEURO: Alert and Orientated SKIN: Intact, normal turgor PSYCH: Normal mood and mentation Result Diagram: 04/05/17 1635 04/05/17 1635 Results 24 hrs Laboratory Tests Test 04/05/17 16:35 White Blood Count 9.510^3/ul Red Blood Count 4.5610^6/ul Hemoglobin 13.7g/dl Hematocrit 40.3% Mean Corpuscular Volume 88.4fl Mean Corpuscular Hemoglobin 30.0pg Mean Corpuscular Hemoglobin Concent 34.0g/dl Red Cell Distribution Width 14.3% Platelet Count 95933^3/UL Mean Platelet Volume 10.7fl Neutrophils % 69.5% Lymphocytes % 19.5% Monocytes % 9.9% Eosinophils % 0.4% Basophils % 0.2% Nucleated Red Blood Cells % 0.0/100WBC Neutrophils # 6.610^3/ul Lymphocytes # 1.910^3/ul Monocytes # 0.910^3/ul Eosinophils # 0.010^3/ul Basophils # 0.010^3/ul Nucleated Red Blood Cells # 0.010^3/ul Urine Color YELLOW Urine Clarity SLIGHTLY CLOUDY Urine pH 6.0 Urine Specific [place] 1.025 Urine Ketones 2+mg/dL Urine Nitrite NEGATIVEmg/dL Urine Bilirubin NEGATIVEmg/dL Urine Urobilinogen NEGATIVEmg/dL Urine Leukocyte Esterase TRACELeu/ul Urine Microscopic RBC 6/HPF Urine Microscopic WBC 3/HPF Urine Squamous Epithelial Cells FEW/HPF Urine Mucus MANY/HPF Urine Hemoglobin NEGATIVEmg/dL Urine Glucose NEGATIVEmg/dL Urine Total Protein 1+mg/dl Sodium Level 143mmol/L Potassium Level 3.7mmol/L Chloride Level 99mmol/L Carbon Dioxide Level 25mmol/L Anion Gap 23 Blood Urea Nitrogen 13mg/dl Creatinine 0.54mg/dl Glucose Level 96mg/dl Calcium Level 9.9mg/dl Total Bilirubin 0.3mg/dl Direct Bilirubin 0.00mg/dl Indirect Bilirubin 0.3mg/dl Aspartate Amino Transf (AST/SGOT) 21IU/L Alanine Aminotransferase (ALT/SGPT) 30IU/L Alkaline Phosphatase 70IU/L Total Protein 7.7g/dl Albumin 4.0g/dl Globulin 3.70g/dl Albumin/Globulin Ratio 1.08 Lipase 23U/L Current Medications Medications (Trade) Dose Ordered Sig/Janette Route PRN Reason Start Time Stop Time Status Last Admin Dose Admin Sodium Chloride (NS) 1,000 ml @ 1,000 mls/hr Q1H STAT IV 04/05/17 16:19 04/05/17 17:18 DC 04/05/17 16:47 Morphine Sulfate (morphine) 4 mg ONCE STAT IV 04/05/17 16:19 04/05/17 16:20 DC Ondansetron HCl 4 mg 4 mg ONCE STAT IV 04/05/17 16:19 04/05/17 16:20 DC 04/05/17 16:48 Ciprofloxacin/ Dextrose 200 ml @ 200 mls/hr ONCE STAT IVPB 04/05/17 20:30 04/05/17 21:29 Metronidazole (Flagyl 500 Mg (Pmx)) 100 ml @ 100 mls/hr ONCE STAT IVPB 04/05/17 20:30 04/05/17 21:29 04/05/17 21:07 Procedures/MDM This is a 51-year-old female presenting to the emergency room complaining of lower abdominal pain and vomiting for the past 4 days status post hernia surgery by Dr. Rowell for an incarcerated inguinal hernia this past Monday. Patient was found to have new finding of diverticulitis and fluid filled dilated loops of small bowel are increased in caliber compared to the prior CT. On examination patient has stable vital signs. She is afebrile and nontoxic appearing. IV access established, patient was given morphine, Zofran and a liter of fluids. In the ED patient was given Cipro and Flagyl through IV. Lab work was drawn. CBC did not show any evidence of leukocytosis or anemia. CMP did not show any evidence of renal, liver, or electrolyte abnormalities. Lipase was normal. UA did not show any evidence of hemoglobin or significant urinary tract infection. CT abd and pelvis without contrast was done, radiologist stated - 1. Compared to the study of 04/02/2017 there has been interval right inguinal herniorrhaphy with anticipated subcutaneous gas along the lower right anterior abdominal wall but development of an adynamic small bowel ileus pattern, the fluid filled dilated loops of small bowel are increased in caliber compared to the prior CT. Distal small bowel obstruction is a differential diagnostic possibility believed to be less likely. 2. New subtle inflammatory stranding posterior to the distal descending colon diverticula concerning for diverticulitis without abscess or pneumoperitoneum. 3. Trace amount of perihepatic and posterior cul-de-sac ascites. 4. Development of left is with compressive atelectasis of the posterior left lower lobe. 5. Tiny bilateral nonobstructing intrarenal calculi are again seen. 6. Leiomyomatous uterus again noted. I discussed this case with the hospitalist Dr. Jain who accepted admission and I have discussed this case with Dr. Rowell and he accepted to see the patient tomorrow morning. Patient is stable to be transferred to [facility] Diagnosis: Primary Impression: Diverticulitis Condition: Stable MINE WHITE PA-C Apr 05, 2017 21:36
[2017-04-05] MEDS ORDERED: KETOROLAC 30 MG INJ IV STA (22:14)
[2017-04-05 22:21] VITALS: PULSE 79; TEMP 99.1
--- NOTE | 2017-04-05 22:46 | RADRPT ---
PROCEDURE: ABDOMEN - 1 VIEW CLINICAL INDICATION: 51-year-old female with abdominal pain. The patient has had a recent right in guinal herniorrhaphy. TECHNIQUE: AP supine view of the abdomen was performed. The images reviewed on a PACS workstatio n. COMPARISON: CT abdomen/pelvis April 05, 2017. FINDINGS: The partially visualized lung bases are unremarkable. There are moderately dilated fluid-filled loop s of small bowel within the left side of the abdomen. There are no abnormal calcifications overlyin g the urinary tracts. The osseous structures are unremarkable. IMPRESSION: Dilated fluid-filled loops of small bowel. This may represent a postoperative ileus. An early or p artial small-bowel obstruction cannot be excluded. .Andrez Fermin MD, MD Date Time Electronically viewed and signed by .Andrez Fermin MD, on 04/05/2017 22:46 .M/
[2017-04-05 23:52] VITALS: Ht 154.9 cm; Wt 57.1 kg
[2017-04-06] VITALS: BP 134/62; RESP 20
[2017-04-06] MEDS ORDERED: ACETAMINOPHEN 500 MG TAB PO PRN (00:30)
[2017-04-06] MEDS ORDERED: morphine 2 MG INJ IV PRN (00:30)
[2017-04-06] MEDS ORDERED: ONDANSETRON 4 MG INJ IV PRN (00:30)
[2017-04-06 02:00] VITALS: BP 120/61; RESP 20
--- NOTE | 2017-04-06 05:30 | HP ---
Date/Time of Note Date/Time of Note DATE: 04/06/17 TIME: 05:21 Assessment/Plan VTE Prophylaxis VTE Prophylaxis Intervention: SCD's Lines/Catheters IV Catheter Type (from Nrs[facility]): [facility] Assessment/Plan Assessment/Plan IMPRESSION 1. Abd pain 2. probable Diverticulitis 3. Small bowel Ileus with probable distal SBO 4. s/p right inguinal herniorrhaphy 4days ago for incarcerated hernia PLAN Keep NPO with IVF will start abx for possible diverticulitis.note however that pt is afebrile with normal white count will place a consult to Dr. Rowell and will f/u his recommendations pain mgmt HPI/ROS Admit Date/Time Admit Date/Time Apr 05, 2017 at 20:40 Hx of Present Illness This is a 51-year-old female presenting to the emergency room complaining of lower abdominal pain and multiple episodes of nonbloody, nonbilious vomiting for the past 4 days. Patient is status post hernia surgery by Dr. Rowell 4 days ago for an incarcerated inguinal hernia. Patient denies any fevers, diarrhea. She states her last bowel movement was this morning and it was normal and nonbloody. In ER, labs and vitals were within acceptable range. CT abd/pelvis showed the following: Compared to the study of 04/02/2017 there has been interval right inguinal herniorrhaphy with anticipated subcutaneous gas along the lower right anterior abdominal wall but development of an adynamic small bowel ileus pattern, the fluid filled dilated loops of small bowel are increased in caliber compared to the prior CT. Distal small bowel obstruction is a differential diagnostic possibility believed to be less likely. 2. New subtle inflammatory stranding posterior to the distal descending colon diverticula concerning for diverticulitis without abscess or pneumoperitoneum. 3. Trace amount of perihepatic and posterior cul-de-sac ascites. 4. Development of left is with compressive atelectasis of the posterior left lower lobe. . PMH/Family/Social Past Surgical History Past Surgical Hx: other Social History Smoking Status: Never smoker Exam/Review of Systems Vital Signs Vitals Vital Signs Date Time Temp Pulse Resp B/P Pulse Ox O2 Delivery O2 Flow Rate FiO2 04/06/17 02:00 98.6 73 20 120/61 97 04/05/17 22:21 Room Air Intake and Output 04/05/17 04/05/17 04/06/17 15:00 23:00 07:00 Intake Total 200 ml Balance 200 ml Exam Constitutional: alert, oriented, well developed Head: atraumatic, normocephalic Eyes: EOMI, PERRL Respiratory: clear to auscultation, normal air movement Cardiovascular: nl pulses, regular rate and rhythm Gastrointestinal: soft, tender Extremities: normal pulses Labs Result Diagram: 04/05/17 1635 04/05/17 1635 Medications Medications Current Medications Ondansetron HCl (Zofran Inj) 4 mg Q6H PRN IV NAUSEA AND/OR VOMITING; Start at 00:30 Morphine Sulfate (morphine) 2 mg Q4H PRN IV PAIN Last administered on t 00:21; Admin Dose 2 MG; Start 04/06/17 at 00:30 Acetaminophen (Tylenol Tab) 500 mg Q6H PRN PO PAIN AND OR ELEVATED TEMP; Start 04/06/17 at 00:30 DIA FERREIRA MD Apr 06, 2017 05:30
[2017-04-06 05:50] LABS: ADD SCAN DIFF NO
[2017-04-06 05:54] LABS: BASOPHILS % 0.3 % (0.0-2.0); EOSINOPHILS # 0.1 10^3/ul (0.0-0.5); EOSINOPHILS % 1.4 % (0.0-7.0); HEMATOCRIT 35.1 % (37.0-47.0); HEMOGLOBIN 12.1 g/dl (12.0-16.0); LYMPHOCYTES # 1.9 10^3/ul (0.8-2.9); LYMPHOCYTES % 20.6 % (15.0-51.0); MEAN CORPUSCULAR HEMOGLOBIN 30.8 pg (29.0-33.0); MEAN CORPUSCULAR HGB CONC 34.5 g/dl (32.0-37.0); MEAN CORPUSCULAR VOLUME 89.3 fl (82.0-101.0); MEAN PLATELET VOLUME 10.6 fl (7.4-10.4); MONOCYTE # 1.1 10^3/ul (0.3-0.9); MONOCYTES % 12.1 % (0.0-11.0); NEUTROPHIL # 6.1 10^3/ul (1.6-7.5); NEUTROPHILS % 65.3 % (39.0-77.0); PLATELET COUNT 280 10^3/UL (140-415); RED BLOOD COUNT 3.93 10^6/ul (4.20-5.40); WHITE BLOOD COUNT 9.3 10^3/ul (4.8-10.8)
[2017-04-06 07:01] LABS: ALBUMIN 3.3 g/dl (3.3-4.9); ALBUMIN/GLOBULIN RATIO 1.1; BILIRUBIN,INDIRECT 0.3 mg/dl (0-1.1); BILIRUBIN,TOTAL 0.3 mg/dl (0.2-1.3); CREATININE 0.62 mg/dl (0.44-1.00); POTASSIUM 3.5 mmol/L (3.5-5.1); TOTAL PROTEIN 6.3 g/dl (6.1-8.1)
[2017-04-06 08:22] VITALS: BP 104/57; RESP 18
[2017-04-06] MEDS: PIPER-TAZO 3.375 GM IV (PMX) 100 ML IVPB SCH ×3 (11:14→23:44)
[2017-04-06] MEDS: PANTOPRAZOLE 40 MG INJ IV SCH (11:14)
[2017-04-06] MEDS: D5W-0.45 NACL + KCL 10 MEQ 1,000 ML IV SCH ×2 (11:23→20:30)
[2017-04-06 14:00] VITALS: BP 117/68; RESP 18
[2017-04-06] MEDS ORDERED: DIATR MEGLU/DIATRIZOATE SODIUM 120 ML BTL ONE (14:08)
--- NOTE | 2017-04-06 16:57 | PN ---
Date/Time of Note Date/Time of Note DATE: 04/06/17 TIME: 16:56 Assessment/Plan VTE Prophylaxis VTE Prophylaxis Intervention: SCD's Lines/Catheters [facility] Assessment/Plan Chief Complaint/Hosp Course Patient is a 51-year-old female with a past medical history significant for right inguinal herniorrhaphy [address] Rowell who presents for nausea vomiting and abdominal pain. Found to have possible diverticulitis Assessment Abdominal pain Nausea vomiting Diverticulitis Small bowel ileus, possible distal SBO Status post right inguinal hernia herniorrhaphy Plan -Broad-spectrum antibiotics -N.p.o. with IV fluids -Patient does not have nausea anymore, will place NG if patient does become nauseated -We will monitor vitals for possible worsening of symptoms. -General surgery recommendations appreciated Manuel Gomez DO Problems: Subjective 24 Hr Interval Summary Free Text/Dictation no more nausea or abdominal pain Exam/Review of Systems Vital Signs Vitals Vital Signs Date Time Temp Pulse Resp B/P Pulse Ox O2 Delivery O2 Flow Rate FiO2 04/06/17 14:00 98.6 70 18 117/68 95 04/05/17 22:21 Room Air Intake and Output 04/05/17 04/05/17 04/06/17 15:00 23:00 07:00 Intake Total 560 ml Balance 560 ml Exam Physical exam General: Patient is laying in bed and answers questions appropriately Mentation: Patient is alert and oriented 4, Head: Normocephalic atraumatic Eyes: EOMI, pupils reactive to light Neck: Supple, nontender, midline Respiratory: Clear to auscultation bilaterally Cardiovascular: regular rate, no obvious murmurs Gastrointestinal: non-tender to palpation, bowel sounds heard. Neurological: Moves all extremities spontaneously Skin: No new skin lesions Results Result Diagram: 04/06/1718 04/06/17 0518 Results 24 hrs Laboratory Tests Test 04/06/17 05:18 White Blood Count 9.3 Red Blood Count 3.93 L Hemoglobin 12.1 Hematocrit 35.1 L Mean Corpuscular Volume 89.3 Mean Corpuscular Hemoglobin 30.8 Mean Corpuscular Hemoglobin Concent 34.5 Red Cell Distribution Width 14.0 Platelet Count 280 Mean Platelet Volume 10.6 H Neutrophils % 65.3 Lymphocytes % 20.6 Monocytes % 12.1 H Eosinophils % 1.4 Basophils % 0.3 Nucleated Red Blood Cells % 0.0 Neutrophils # 6.1 Lymphocytes # 1.9 Monocytes # 1.1 H Eosinophils # 0.1 Basophils # 0.0 Nucleated Red Blood Cells # 0.0 Sodium Level 142 Potassium Level 3.5 Chloride Level 101 Carbon Dioxide Level 26 Anion Gap 19 H Blood Urea Nitrogen 13 Creatinine 0.62 Glucose Level 90 Calcium Level 9.0 Total Bilirubin 0.3 Direct Bilirubin 0.00 Indirect Bilirubin 0.3 Aspartate Amino Transf (AST/SGOT) 15 Alanine Aminotransferase (ALT/SGPT) 27 Alkaline Phosphatase 56 Total Protein 6.3 # Albumin 3.3 Globulin 3.00 Albumin/Globulin Ratio 1.10 Medications Medications Current Medications Ondansetron HCl (Zofran Inj) 4 mg Q6H PRN IV NAUSEA AND/OR VOMITING; Start at 00:30 Morphine Sulfate (morphine) 2 mg Q4H PRN IV PAIN Last administered on 00:21; Admin Dose 2 MG; Start 04/06/17 at 00:30 Acetaminophen 500 mg 500 mg Q6H PRN PO PAIN AND OR ELEVATED TEMP; Start at 00:30 Piperacillin Sod/ Tazobactam Sod 100 ml @ 200 mls/hr Q6 IVPB Last administered on 04/06/17 11:14; Admin Dose 200 MLS/HR; Start 04/06/17 at 12:00 Potassium Chloride/Dextrose/ Sod Cl (D5-1/2ns + KCl 10 Meq) 1,000 ml @ 100 mls/ hr Q10H IV Last administered on 04/06/17 11:23; Admin Dose 100 MLS/HR; Start 04/06/17 at 10:30 Pantoprazole (Protonix Iv) 40 mg 06 IV Last administered on 04/06/17 11:14; Admin Dose 40 MG; Start 04/06/17 at 11:00 MANUEL GOMEZ Apr 06, 2017 16:57
--- NOTE | 2017-04-06 17:07 | RADRPT ---
PROCEDURE: Small bowel follow-through. CLINICAL INDICATION: Abdomen pain. TECHNIQUE: Water-soluble contrast was administered orally and several spot and overhead radiograph s of the abdomen were obtained. COMPARISON: None. FINDINGS: The preliminary radiograph is normal. There is no small bowel displacement or mass. The small bowel folds are normal. There is no evidence of obstruction. Transit time is normal with contrast in the colon at 2 hours. . IMPRESSION: 1. Normal small bowel follow-through. RPTAT: QQ .Pritesh Dale MD, MD Date Time Electronically viewed and signed by .Pritesh Dale MD, MD on 04/06/2017 17:07 .R/
[2017-04-06 20:59] VITALS: BP 122/66; RESP 18
[2017-04-07 02:06] VITALS: BP 113/68; RESP 19
[2017-04-07] MEDS: D5W-0.45 NACL + KCL 10 MEQ 1,000 ML IV SCH (02:52)
[2017-04-07] MEDS: PANTOPRAZOLE 40 MG INJ IV SCH (05:16)
[2017-04-07] MEDS: PIPER-TAZO 3.375 GM IV (PMX) 100 ML IVPB SCH ×2 (05:17→14:24)
[2017-04-07 05:41] LABS: ADD SCAN DIFF NO
[2017-04-07 05:42] LABS: BASOPHILS % 0.5 % (0.0-2.0); EOSINOPHILS # 0.2 10^3/ul (0.0-0.5); EOSINOPHILS % 3.4 % (0.0-7.0); HEMATOCRIT 34.7 % (37.0-47.0); HEMOGLOBIN 11.4 g/dl (12.0-16.0); LYMPHOCYTES # 2.2 10^3/ul (0.8-2.9); LYMPHOCYTES % 33.9 % (15.0-51.0); MEAN CORPUSCULAR HEMOGLOBIN 29.2 pg (29.0-33.0); MEAN CORPUSCULAR HGB CONC 32.9 g/dl (32.0-37.0); MEAN PLATELET VOLUME 10.1 fl (7.4-10.4); MONOCYTE # 0.8 10^3/ul (0.3-0.9); MONOCYTES % 12.1 % (0.0-11.0); NEUTROPHIL # 3.2 10^3/ul (1.6-7.5); NEUTROPHILS % 49.3 % (39.0-77.0); PLATELET COUNT 285 10^3/UL (140-415); RED CELL DISTRIBUTION WIDTH 14.2 % (11.5-14.5); WHITE BLOOD COUNT 6.4 10^3/ul (4.8-10.8)
[2017-04-07 06:31] LABS: CALCIUM 8.7 mg/dl (8.4-10.2); CREATININE 0.6 mg/dl (0.44-1.00); MAGNESIUM 1.8 mg/dl (1.7-2.5); PHOSPHORUS 3.9 mg/dl (2.5-4.9); POTASSIUM 3.3 mmol/L (3.5-5.1)
[2017-04-07 08:17] VITALS: BP 118/73; RESP 18
--- NOTE | 2017-04-07 10:07 | CONS ---
DATE OF ADMISSION: 04/05/2017 DATE OF CONSULTATION: 04/06/2017 REASON FOR CONSULTATION: Diverticulitis and postoperative ileus. HISTORY OF PRESENT ILLNESS: The patient is a 51-year-old female, who is 4 days status post-emergency surgery for incarcerated right inguinal hernia. The procedure was uneventful and the patient was able to be discharged on the same day. The last several days the patient had lower abdominal pain associated with vomiting. She has had normal bowel movements as recently as yesterday. In the emergency room imaging studies were compatible with ileus as well as diverticulitis. The patient is admitted and surgical consultation was requested in that regard. The patient states that since her admission she has had no further nausea or vomiting, and her abdominal pain is minimal. PAST MEDICAL HISTORY: As in the HPI, and includes section x2. No other hospitalizations or illnesses. REVIEW OF SYSTEMS: HEENT: Head, ears, eyes, nose, throat unremarkable. LUNGS: No history of pneumonia, asthma or shortness of breath. HEART: No history of chest pain CT or arrhythmia. ABDOMEN: As in the HPI. GENITOURINARY: Asymptomatic. MEDICATION: Percocet. ALLERGIES: NONE. PHYSICAL EXAMINATION: GENERAL APPEARANCE: The patient is an alert and oriented 51-year- old female, in no acute distress. HEENT: Head, ears, eyes, nose, and throat within normal limits. LUNGS: Clear. HEART: Regular rhythm. ABDOMEN: Soft, flat, and nontender. There is a transverse incision in the right groin, which is clean and healing well with some slight ecchymosis. There is no abdominal tenderness or mass. EXTREMITIES: Unremarkable. LABORATORY: Hematocrit is 40, white count of 9500 without left shift. BUN, glucose, and electrolytes are unremarkable. IMAGING STUDIES: As noted above. IMPRESSION: Diverticulitis and ileus. PLAN: The patient has been started on intravenous antibiotics. We will proceed with small bowel follow-through to evaluate the reported ileus. Further recommendations will be based on the patient's further work up and clinical course. Dictated By: Dilan Rowell MD /lissette/nanette /Document#: [id number]
[2017-04-07 14:13] VITALS: BP 116/59; RESP 16
[2017-04-07] MEDS ORDERED: CIPR500T4 PO (14:44)
[2017-04-07] MEDS ORDERED: METR500T PO (14:46)
--- NOTE | 2017-04-07 14:50 | PDOCDIS ---
Discharge Instructions CONDITION Patient Condition: Stable HOME CARE INSTRUCTIONS: Your diet recommendation is: clears, advance as tolerated. FOLLOW UP/APPOINTMENTS Follow-up Plan follow up with Dr. Rowell and your primary care provider within 2 weeks. JOLYNN GOMEZ Apr 07, 2017 14:50
--- NOTE | 2017-04-07 14:58 | DS ---
Date/Time of Note Date/Time of Note DATE: 04/07/17 TIME: 14:57 Discharge Summary Admission/Discharge Info Admit Date/Time Apr 05, 2017 at 20:40 Discharge Date/Time Patient Condition: Stable Hx of Present Illness This is a 51-year-old female presenting to the emergency room complaining of lower abdominal pain and multiple episodes of nonbloody, nonbilious vomiting for the past 4 days. Patient is status post hernia surgery by Dr. Rowell 4 days ago for an incarcerated inguinal hernia. Patient denies any fevers, diarrhea. She states her last bowel movement was this morning and it was normal and nonbloody. In ER, labs and vitals were within acceptable range. CT abd/pelvis showed the following: Compared to the study of 04/02/2017 there has been interval right inguinal herniorrhaphy with anticipated subcutaneous gas along the lower right anterior abdominal wall but development of an adynamic small bowel ileus pattern, the fluid filled dilated loops of small bowel are increased in caliber compared to the prior CT. Distal small bowel obstruction is a differential diagnostic possibility believed to be less likely. 2. New subtle inflammatory stranding posterior to the distal descending colon diverticula concerning for diverticulitis without abscess or pneumoperitoneum. 3. Trace amount of perihepatic and posterior cul-de-sac ascites. 4. Development of left is with compressive atelectasis of the posterior left lower lobe. . Hospital Course Abdominal pain Nausea vomiting Diverticulitis Small bowel ileus, possible distal SBO Status post right inguinal hernia herniorrhaphy Patient is a 51-year-old female with past medical history significant for right inguinal herniorrhaphy recently performed by Dr. Rowell, who presents to [facility] for nausea vomiting abdominal pain. CT of the abdomen and pelvis showed diverticulitis as well as possible SBO. Dr. Rowell was reconsulted on the case who performed a small bowel follow-through which found no SBO. Patient was stable and was not septic throughout admission and will be placed on oral Cipro Flagyl for 10 days for the diverticulitis to follow -up with Dr. Rowell and her PCP as soon as possible. Manuel Gomez DO Home Meds Active Scripts Metronidazole* (Flagyl*) 500 Mg Tablet, 500 MG PO Q8 for 10 Days, #30 TAB Prov:MANUEL GOMEZ 7/21/17 Ciprofloxacin Hcl* (Ciprofloxacin Hcl*) 500 Mg Tablet, 500 MG PO BID for 10 Days , #20 TAB Prov:MANUEL GOMEZ 04/07/17 Follow-up Plan follow up with your primary care provider and Dr Rowell within 1-2 weeks. Primary Care Provider Care Physician No Primary Time spent on discharge: > 30 minutes Pending Labs Laboratory Tests Test 04/07/17 05:20 White Blood Count 6.410^3/ul (4.8-10.8) Red Blood Count 3.9010^6/ul (4.20-5.40) Hemoglobin 11.4g/dl (12.0-16.0) Hematocrit 34.7% (37.0-47.0) Mean Corpuscular Volume 89.0fl (82.0-101.0) Mean Corpuscular Hemoglobin 29.2pg (29.0-33.0) Mean Corpuscular Hemoglobin Concent 32.9g/dl (32.0-37.0) Red Cell Distribution Width 14.2% (11.5-14.5) Platelet Count 51703^3/UL (140-415) Mean Platelet Volume 10.1fl (7.4-10.4) Neutrophils % 49.3% (39.0-77.0) Lymphocytes % 33.9% (15.0-51.0) Monocytes % 12.1% (0.0-11.0) Eosinophils % 3.4% (0.0-7.0) Basophils % 0.5% (0.0-2.0) Neutrophils # 3.210^3/ul (1.6-7.5) Lymphocytes # 2.210^3/ul (0.8-2.9) Monocytes # 0.810^3/ul (0.3-0.9) Eosinophils # 0.210^3/ul (0.0-0.5) Basophils # 0.010^3/ul (0.0-0.1) Nucleated Red Blood Cells # 0.010^3/ul (0.0-0.0) Sodium Level 144mmol/L (135-144) Potassium Level 3.3mmol/L (3.5-5.1) Chloride Level 104mmol/L (97-110) Carbon Dioxide Level 26mmol/L (21-31) Anion Gap 17 (8-16) Blood Urea Nitrogen 10mg/dl (7-20) Creatinine 0.60mg/dl (0.44-1.00) Glucose Level 101mg/dl (70-220) Calcium Level 8.7mg/dl (8.4-10.2) Phosphorus Level 3.9mg/dl (2.5-4.9) Magnesium Level 1.8mg/dl (1.7-2.5) MANUEL GOMEZ Apr 07, 2017 14:58
== END 2017-04-07 16:30 | disposition home or self-care (01) | DRG 392 ==
LOC: FTE 14:50 → PP2 20:40
PROVIDERS: ADMIT Internal Medicine; ATTEND Internal Medicine
DX: K57.32 Diverticulitis of large intestine without perforation or abscess without bleeding (principal); K56.0 Paralytic ileus; R11.2 Nausea with vomiting, unspecified; Z98.890 Other specified postprocedural states
CPT/HCPCS: 36415; 74000; 74176; 74250; 80048; 80053; 81001; 83690; 83735; 84100; 85025; 87081; 96365; 96375; C9113; J0744; J1885; J2270; J2405; J2543; J3480; J7030